=== PATIENT | male | born 1950 | race Caucasian/White ===

== ENCOUNTER → 2018-11-23 | Day surgery (SDC) | payer BC ==
[2018-11-22 16:06] LABS: BASOPHILS # (AUTO) 0.1 (0.0-0.1); BASOPHILS % 0.8 % (0.0-1.0); EOSINOPHILS # (AUTO) 0.4 (0.0-0.4); HEMATOCRIT 48.9 % (38.2-49.6); LYMPHOCYTES # (AUTO) 2.8 (1.0-3.2); LYMPHOCYTES % 28.6 % (18.0-39.1); MEAN CORPUSCULAR HGB CONC 34.8 g/dL (31-35); MEAN CORPUSCULAR VOLUME 86.4 fL (81-99); MONOCYTES # (AUTO) 0.8 (0.2-0.8); MONOCYTES % 7.8 % (4.4-11.3); NEUTROPHILS # (AUTO) 5.6 (2.1-6.9); NEUTROPHILS % 58.3 % (38.7-80.0); PLATELET COUNT 211 x10e3/uL (140-360); RED BLOOD COUNT 5.66 x10e6/uL (4.3-5.7); RED CELL DISTRIBUTION WIDTH 12.8 % (11.7-14.4)
[2018-11-22 16:29] LABS: ALANINE AMINOTRANSFERASE 57 IU/L (0-55); ALBUMIN 3.8 g/dL (3.5-5.0); ALKALINE PHOSPHATASE 54 IU/L (40-150); ANION GAP 14.1 mmol/L (8-16); BLOOD UREA NITROGEN 16 mg/dL (7-26); BUN/CREATININE RATIO 16 (6-25); CALCIUM 9.5 mg/dL (8.4-10.2); CARBON DIOXIDE 23 mmol/L (22-29); CHLORIDE 103 mmol/L (98-107); CREATININE, SERUM 0.99 mg/dL (0.72-1.25); EST GLOMERULAR FILTRATION RATE > 60 ML/MIN (60-); GLUCOSE 108 mg/dL (74-118); POTASSIUM 4.1 mmol/L (3.5-5.1); SODIUM 136 mmol/L (136-145)
[~2018-11-23] VITALS: Ht 177.8 cm; Wt 122.5 kg
[2018-11-23] VITALS (9 sets, daily range): BP systolic 139–157; BP diastolic 59–80
[~2018-11-23] MED LIST: ALPRAZOLAM 0.5 MG TAB ONE; ASPIR 8181 MG PO; ATENOLOL50 MG PO; DIPHENHYDRAMINE HCL 25 MG CAP ONE; FENTANYL CITRATE/PF 100MCG/2 ML INJ ONE; HEPARIN SOD/SOD CHLORIDE 2,000 ML ONE; IOPAMIDOL 370 MG/ML 200 ML INFUS..BTL INJ ONE; LIDOCAINE HCL 2% LOCAL 20 ML VIAL ONE; LOSARTAN POTAS100 MG PO; MIDAZOLAM HCL 2 MG/2 ML VIAL ONE; POTASSIUM CHLO10 ME1 PO; SODIUM CHLORIDE 0.9% 1000ML 1,000 ML ONE; VERAPAMIL HCL 2.5 MG/ML 2 ML VIAL ONE
--- OUTSIDE RECORDS SUMMARY | 2018-11-23 09:13 | XMS REPORT ---
[facility] Address Unknown Phone Unavailable Care Team Providers Care Hat Brusher Machine Name Role Phone VAN PERLA Unavailable Unavailable Problems This patient has no known problems. Allergies, Adverse Reactions, Alerts This patient has no known allergies or adverse reactions. Medications This patient has no known medications. Results Test Description Test Time Test Comments Text Results Atomic Results Result Comments CHEST 2 VIEWS [place] [address] Patient Name: LIANNE HINKLE MR #: [id number] : 1950 Age/Sex: 67/M Req #: [id number] Adm Physician: Ordered by: VAN PERLA MD Report #: [id number] Location: [facility] Room/Bed: Procedure: [id number] DX/CHEST 2 VIEWS Exam Date: 07/21/17 Exam Time: 1212 REPORT STATUS: Signed PROCEDURE: Frontal and lateral views of the chest. COMPARISON: None. INDICATIONS: SHORT OF BREATH, LOW TEMP. X 12 DAYS FINDINGS: Evaluation partly limited by motion. Lines/tubes: None. Lungs: The lungs are well inflated and clear. There is no evidence of pneumonia or pulmonary edema. Pleura: There is no pleural effusion or pneumothorax. Heart and mediastinum: The heart and the mediastinum are normal. Bones: No acute bony abnormality. Degenerative changes of the spine. IMPRESSION: No acute cardiopulmonary disease. Dictated by: Manpreet Tran M.D. on 07/21/2017 at 12:50 Electronically approved by: Manpreet Tran M.D. on 07/21/2017 at 12:50 Dictated By: MANPREET TRAN MD 1250 Transcribed By: RADHA on 07/21/17 1250 COPY TO: VAN PERLA MD
--- NOTE | 2018-11-23 09:40 | NUR ---
Patient brought back to ACU bed 20. Patient awake,alert, and orientedx3. Respirations even and unlabored on room air. at bedside. Patient prepped in usual fashion for left heart catheterization procedure.
--- NOTE | 2018-11-23 11:15 | NUR ---
bedside report received from Elva Harrison RN. Alert oriented and appropriate, PERRLA, respirations even and unlabored to room air. Pulses x4 extremities equal and strong. Pedal pulses PT/DP marked and marked. TR band to right wrist with Cap fill brisk < 3 sec. Skin warm and dry integrity appears intact. IV 20g to left hand presents healthy w/o s/s of infiltration or complaint. Abdomen soft and supple. pt offered toileting, denies need to urinate or defecate. No personal affects with patient. Family at bedside. Pt and family verbalizes understanding of POC. Currently w/o complaint of pain or need. Stretcher low and locked, side rails up x2, calllgith within reach. Dr Elizabeth at bedside speaking with family and patient - cgf
--- NOTE | 2018-11-23 12:00 | NUR ---
Family at bedside, TR band reduced by 2ml
--- NOTE | 2018-11-23 12:15 | NUR ---
TR band reduced by 2 ml
--- NOTE | 2018-11-23 12:20 | NUR ---
DR Elizabeth notified of VS trend, asymptomatic
--- NOTE | 2018-11-23 12:30 | NUR ---
TR band reduced by 2ml. no s/s of hematoma
--- NOTE | 2018-11-23 12:45 | NUR ---
TR band reduced by 2ml. no s/s of hematoma
--- NOTE | 2018-11-23 13:00 | NUR ---
TR band reduced by 2ml. no s/s of hematoma
--- NOTE | 2018-11-23 13:15 | NUR ---
TR band reduced by 4ml. no s/s of hematoma
--- NOTE | 2018-11-23 13:30 | NUR ---
TR band removed and clean dressing applied. Education performed, pt/family verbalized understanding. + neurovascular and sensation present.
--- NOTE | 2018-11-23 13:45 | NUR ---
Pt meets DC criteria. right hand assessed for s/s of complication and presence of hematoma. +neurovascular function, warm, dry, no discolor, and pulses present. IV removed from left hand. Distal tip appears intact. VS WNL. Pt denies pain, sob, or need at this time. Family at bedside. Review of discharge paperwork and follow up instructions. verbalized understanding. Pt to wheelchair and transported to front of hospital. Transferred to private vehicle under own strength w/o incident with DC paperwork in hand. - cgf
--- NOTE | 2018-11-24 03:56 | Operative Report ---
DATE OF PROCEDURE: 11/23/2018 SURGEON: Marlon Elizabeth MD INDICATION: Coronary artery disease with abnormal stress test. PROCEDURES PERFORMED: 1. Left heart catheterization, selective coronary angiography, left ventriculography. 2. Deployment of right wrist TR band. COMPLICATIONS: None. BLOOD LOSS: Minimal. RECOMMENDATIONS: Medical therapy. DESCRIPTION OF PROCEDURE: Access was obtained in the right radial artery. A 5-[place] sheath was placed. Diagnostic coronary angiogram revealed mild diffuse coronary artery disease of 10% to 20% luminal stenosis. No critical occlusions or stenosis noted. No intervention was deemed necessary. LV ejection fraction 65%. LV end-diastolic pressure of 8. No gradient across the aortic valve pullback. Right wrist sheath and guide were removed. TR band applied. The patient discharged home on the same day. Marlon Elizabeth MD KSB/MODL /[id number]
== END | disposition home or self-care (01) ==
LOC: CATH LAB 09:10
PROVIDERS: ATTEND Internal Medicine Interventional Cardiology
DX: I25.118 Atherosclerotic heart disease of native coronary artery with other forms of angina pectoris (principal); Z01.812 Encounter for preprocedural laboratory examination; R00.1 Bradycardia, unspecified; I10 Essential (primary) hypertension
CPT/HCPCS: 36415; 80053; 85025; 93458; C1769; C1887; J2001; J2250; J7030; Q9967